=== PATIENT | male | born 1985 | race African-American/Black ===

== ENCOUNTER 2017-04-24 10:48 | Emergency (ER) | payer SELFPAY ==
--- NOTE | ~2017-04-24 | CR132 ---
[facility]. [facility] A Service of [facility] RADIOLOGY TEXT RESULTS PATIENT: SAMSON GILBERT LOCATION: SED : 87 UNIT #: [id number] AGE: [address]: ZAHRAA HERNANDEZ SEX: M ORDER DR: [id number] [place] [id number] E MR#: [id number] Acc #: [id number] NAME: SAMSON GILBERT : 1985 SEX: M STUDY DATE/TIME: 04/24/2017 12:23 UNIT: SED ROOM: STUDY DESCRIPTION: CR Forearm 2 View Lt Attending Physician: Zahraa Hernandez A.P.R.N. Ordering Physician: Zahraa Hernandez A.P.R.N. Primary Care Physician: No Primary Care Physician MEDICAL IMAGING REPORT This report is preliminary unless electronic signature is present. EXAM Left forearm 04/24/2017 INDICATIONS Dog bite x3 today bite to the forearm laterally with pain. TECHNIQUE 2 views of the left forearm no comparisons FINDINGS There is subcutaneous emphysema about the distal aspect of the radius and ulna. There is a puncture wound involving the anatomically lateral aspect of the distal third shaft radius. No retained opaque foreign body or associated fracture. IMPRESSION 1. Puncture wound along the distal third shaft lateral radius. No fracture or retained opaque foreign body. Subcutaneous emphysema. Dictated by... Frankie Hobbs M.D. THIS IS AN ELECTRONICALLY VERIFIED REPORT Frankie Hobbs M.D. at 04/25/2017 2:55 PM PILAR/julisa TD: 04/25/2017 09:25 JOB #: [id number] MEDICAL IMAGING REPORT Page 1 of 1
[~2017-04-24 10:48] MED LIST: AMOXICILLIN PO; AMOXICILLIN500 M1 PO; AMOXICILLIN875 MG PO; AURALGAN EAR DR14 ML OT; BENTYL20 M1 PO; CLARITIN10 MG PO; DICLOFENAC PO; FLEXERIL PO; FLONASE 0.05% N16 G1; IBUPROFEN100 MG PO; IBUPROFEN800 MG PO; KETOPROFEN PO; LORTAB 7.5-5001 TAB PO; MEDROL PO; NAPROXEN PO; NO MEDICATIONS; PHENERGAN25 M1 PO; SUDAFED PO; TYLENOL #3 PO; ULTRAM PO; ZYRTEC PO
== END 2017-04-24 14:15 | disposition home or self-care (01) ==
LOC: SED 10:48
DX: S51.052A Open bite, left elbow, initial encounter (principal); F17.200 Nicotine dependence, unspecified, uncomplicated; Z23 Encounter for immunization; W54.0XXA Bitten by dog, initial encounter
CPT/HCPCS: 12001; 73090; 90471; 90715; 99283